=== PATIENT | female | born 1985 | race Two or more races ===

== ENCOUNTER 2018-03-07 09:20 | Outpatient (CLI) | payer OTHER ==
[~2018-03-07 09:20] MED LIST: ADERAL; ANTICONCEPTIVOS; [UNRECOGNIZED DRUG - OTHER]
== END 2018-03-07 09:32 | disposition home or self-care (01) ==
LOC: MAMO-SONO 09:20
DX: Z12.31 Encounter for screening mammogram for malignant neoplasm of breast (principal); N64.4 Mastodynia; N60.11 Diffuse cystic mastopathy of right breast

== ENCOUNTER → 2018-11-20 | Outpatient (CLI) | payer OTHER | END | disposition home or self-care (01) | LOC: SONOGRAMA 09:35 | DX: E04.1 Nontoxic single thyroid nodule (principal) ==

== ENCOUNTER 2020-07-28 14:24 | Outpatient (CLI) | payer OTHER | END 2020-07-28 14:33 | disposition home or self-care (01) | LOC: RAD 14:24 | PROVIDERS: ATTEND Physical Medicine & Rehabilitation | DX: M62.838 Other muscle spasm (principal) ==